=== PATIENT | female | born 1985 | race Caucasian/White ===

== ENCOUNTER 2021-09-17 07:22 | Outpatient (CLI) | payer OTHER | END 2021-09-17 07:32 | disposition home or self-care (01) | LOC: SONOGRAMA 07:22 | PROVIDERS: ATTEND Obstetrics & Gynecology | DX: N93.0 Postcoital and contact bleeding (principal) ==

== ENCOUNTER 2021-11-11 08:16 | Outpatient (CLI) | payer OTHER | END 2021-11-11 08:23 | disposition home or self-care (01) | LOC: RAD 08:16 | DX: M76.50 Patellar tendinitis, unspecified knee (principal); M22.00 Recurrent dislocation of patella, unspecified knee; M22.10 Recurrent subluxation of patella, unspecified knee ==

== ENCOUNTER 2025-03-18 09:43 | Outpatient (CLI) | payer OTHER | END 2025-03-18 09:56 | disposition home or self-care (01) | LOC: SONOGRAMA 09:43 | DX: R10.20 Pelvic and perineal pain unspecified side (principal) ==